=== PATIENT | male | born 1960 | race African-American/Black ===

== ENCOUNTER 2021-01-22 04:29 | Observation (INO) | payer OTHER ==
[~2021-01-22] VITALS: Ht 190.5 cm; Wt 106.7 kg
[2021-01-22 05:02] VITALS: BP 159/81
[2021-01-22 05:18] LABS: ABSOLUTE NEUTROPHILS 2.7 thou/uL (1.4-8.2); BASOPHILS 1.1 % (0.0-2.0); EOSINOPHILS 5.3 % (0.0-3.0); HEMATOCRIT 47.2 % (42.0-52.0); HEMOGLOBIN 15.3 gm/dL (14.0-18.0); LYMPHOCYTES 42.5 % (24.0-44.0); MCH 30.5 pg (26.0-34.0); MCHC 32.4 g/dL (28.0-37.0); MCV 94.4 fL (80.0-100.0); MONOCYTES 8.1 % (1.0-8.0); PLATELET COUNT 212 thou/uL (150-400); WBC 6.4 thou/uL (4.0-11.0)
[2021-01-22 05:23] LABS: ANION GAP 9 mmol/L (7-16); BUN 16 mg/dL (7-18); CALCIUM 8.8 mg/dL (8.5-10.1); CHLORIDE 104 mmol/L (98-107); CO2 27 mmol/L (21-32); CREATININE 1.1 mg/dL (0.7-1.3); GLUCOSE 112 mg/dL (74-106); SODIUM 140 mmol/L (136-145)
[2021-01-22 05:32] LABS: ALBUMIN 4.1 g/dL (3.4-5.0); SGOT 24 U/L (15-37); SGPT 27 U/L (16-63); TOTAL BILIRUBIN 0.9 mg/dL (0.2-1.0); TOTAL PROTEIN 7.6 g/dL (6.4-8.2); TROPONIN-I <0.06 ng/mL (<0.06)
[2021-01-22 05:38] LABS: APTT 27.4 Seconds (24.5-32.8); INR 0.95; PROTIME 10.4 Seconds (9.3-11.4)
--- NOTE | 2021-01-22 07:05 | EKG ---
[place] [address] [facility] [place] [employer] [address] ELECTROCARDIOGRAM REPORT Name: MANUEL LAWS Room #: 170-1 ADM Ace M.R.#: [id number] Admission: 01/22/21 Attend Phys: Alex Alvarez MD Discharge: Date of : 60 Report #: [id number] [facility] ED Test Date: 2021-01-22 Test Time: 04:59:46 Pat Name: MANUEL LAWS Department: Room: 170 Gender: M Technical Training Coordinator: ely : 1960 Requested By: Julio Cardenas Order Number: [id number] MD: Constantino Rowe Measurements Intervals Admire Rate: 65 P: 63 NJ: 190 QRS: 54 QRSD: 90 T: 57 QT: 399 QTc: 415 Interpretive Statements Sinus rhythm Probable left atrial enlargement Minimal ST elevation, inferior leads No previous ECG available for comparison Electronically Signed On 01-22-2021 7:04:53 CDT by Constantino Rowe [email or web address] <ELECTRONICALLY SIGNED> By: Constantino Rowe MD, [facility] 01/22/21 [id number] Constantino Rowe MD, FACC /EPI
[2021-01-22 07:34] VITALS: BP 130/85
--- NOTE | 2021-01-22 10:06 | NUR ---
RECEIVED PT FROM ER AT 0745, NO BEDSIDE HANDOFF GIVEN. PT DENIES ANY PAIN. PT'S LEFT ARM HAS NO EFFORT AGAINST GRAVITY. PT STATES HE HAS OLD ROTATOR CUFF INJURY TO THE LEFT ARM. ORTHO CALLED AT 1000 AND WANTED TO KNOW WHY HE WAS CONSULTED EVEN THOUGH HE CAME IN WITH STROKE SYMPTOMS. I TOLD HIM ABOUT THE PREVIOUS INJURY, DOCTOR STATED HE WILL BE IN TO SEE HIM "AT SOME POINT"
[2021-01-22 10:21] LABS: CHOLESTEROL 145 mg/dL (<200); HDL CHOLESTEROL 61 mg/dL (>40); LDL CHOLESTEROL 68 mg/dL (<100); TC:HDL 2.4 Ratio (Not establshd); TRIGLYCERIDE 82 mg/dL (<150); VLDL 16 mg/dL (<40)
[2021-01-22] MEDS ORDERED: NAPROXEN250 MG PO (10:24)
[2021-01-22 16:19] VITALS: BP 127/75
[2021-01-22 19:58] VITALS: BP 122/69
[2021-01-22 23:40] VITALS: BP 123/71
--- NOTE | 2021-01-23 04:42 | NUR ---
Slept well during the night. Limited movement of left shoulder and stated there's only numbness when he tries to move it. Denies any other concern.
[2021-01-23 05:02] VITALS: BP 120/66
[2021-01-23 07:19] VITALS: BP 125/76
[2021-01-23 11:48] VITALS: BP 120/72
[2021-01-23 14:03] VITALS: BP 120/72
--- NOTE | 2021-01-23 14:35 | NUR ---
assumed care of pt at 0700. pt alert and oriented denies pain. does not want naproxen. mri confirmed massive rotator cuff tear. to follow up with ortho for treatment options. pt agreeable and understands. waiting on transport to pick patient up.
== END 2021-01-23 15:53 | disposition home or self-care (01) ==
LOC: ER 04:29 → EROBS 06:06 → 3W 06:06 → EROBS 06:06 → 3W 07:43
PROVIDERS: Emergency Medicine; ADMIT Hospitalist; ATTEND Hospitalist
DX: R53.1 Weakness (principal); R20.0 Anesthesia of skin; R20.2 Paresthesia of skin; I63.9 Cerebral infarction, unspecified